=== PATIENT | male | born 1965 | race Two or more races ===

== ENCOUNTER 2018-04-23 07:03 | Emergency (ER) | payer BC ==
[2018-04-23 07:14] VITALS: BP 126/76
--- NOTE | 2018-04-23 07:24 | UC ---
Skin Complaint HPI - HPI Summary HPI Summary: NOTICED A FEW INSECT BITES ON HIS ARMS AND LEGS TODAY AND IS CONCERNED ABOUT SCABIES. WORKS IN A [employer] AND THERE IS A SCABIES OUTBREAK. NO FEVER. - History of Current Complaint Chief Complaint: UCSkin Time Seen by Provider: 04/23/18 07:16 Stated Complaint: SKIN COMPLAINT Hx Obtained From: Patient Onset/Duration: Lasting Days, Still Present Timing: Constant Onset Severity: Mild Current Severity: Mild Pain Intensity: 0 Pain Scale Used: 0-10 Numeric Character: Redness, Raised Aggravating Factor(s): Nothing Alleviating Factor(s): Nothing Associated Signs & Symptoms: Negative: Nausea, Fever, Tenderness Related History: Insect Bite/Sting - Allergy/Home Medications Allergies/Adverse Reactions: Allergies Allergy/AdvReac Type Severity Reaction Status Date / Time codeine Allergy Nausea Verified 04/23/18 07:06 Review of Systems Constitutional: Negative Skin: Rash Respiratory: Negative Cardiovascular: Negative Gastrointestinal: Negative All Other Systems Reviewed And Are Negative: Yes PMH/Surg Hx/FS Hx/Imm Hx Previously Healthy: Yes - Surgical History Surgical History: None - Family History Known Family History: Positive: Hypertension - Social History Alcohol Use: Rare Substance Use Type: None Smoking Status (MU): Never Smoked Tobacco Physical Exam Triage Information Reviewed: Yes Appearance: Well-Appearing, No Pain Distress, Well-Nourished Vital Signs: Initial Vital Signs Temp 97.2 F 04/23/18 07:10 Pulse 77 04/23/18 07:10 Resp 18 04/23/18 07:10 BP 126/76 04/23/18 07:10 Pulse Ox 99 04/23/18 07:10 Vital Signs Reviewed: Yes Eyes: Positive: Conjunctiva Clear ENT: Positive: Hearing grossly normal Neck: Positive: Supple Respiratory: Positive: No respiratory distress, No accessory muscle use Cardiovascular: Positive: Pulses Normal Abdomen Description: Positive: Soft Musculoskeletal: Positive: No Edema Neurological: Positive: Alert Psychological: Positive: Age Appropriate Behavior Skin: Positive: Other - 4 ISOLATED ~5MM RAISED ERYTHEMATOUS LESIONS C/W INSECT BITES. 1 ON LEFT FOREARM, 1 ON RIGHT FOREARM, 1 ON LEFT HAND AND 1 BEHIND LEFT KNEE. NO EXCORIATION Course/Dx - Course Course Of Treatment: APPEARANCE OF INSECT BITES NOT CONSISTENT WITH SCABIES. ADVISED PATIENT TO BE VIGILANT OVER THE NEXT SEVERAL WEEKS AND SEEK REEVALUATION IF HIS RASH CHANGES. KEEP COOL CLEAN AND DRY. TOPICAL HYDROCORTISONE CREAM IF NEEDED FOR MILD ITCHING. - Diagnoses Provider Diagnoses: IINSECT BITES Discharge - Sign-Out/Discharge Documenting (check all that apply): Patient Departure All imaging exams completed and their final reports reviewed: No Studies - Discharge Plan Condition: Stable Disposition: HOME Patient Education Materials: Insect Bite or Sting (ED) Referrals: Helio Talley MD [Primary Care Provider] - If Needed Additional Instructions: YOUR RASH IS NOT CONSISTENT WITH SCABIES. IT CAN TAKE SEVERAL WEEKS AFTER EXPOSURE FOR SCABIES TO MANIFEST SO BE VIGILANT AND SEEK RE-EVALUATION IF YOUR SYMPTOMS CHANGE OR WORSEN. IN THE MEANTIME YOU CAN USE OTC HYDROCORTISONE CREAM IF YOUR BITES ARE ITCHY AT ALL. KEEP COOL, CLEAN AND DRY. - Billing Disposition and Condition Condition: STABLE Disposition: Home
== END 2018-04-23 07:30 | disposition home or self-care (01) ==
LOC: UCEAST 07:03
DX: S40.862A Insect bite (nonvenomous) of left upper arm, initial encounter (principal); S40.861A Insect bite (nonvenomous) of right upper arm, initial encounter; S80.862A Insect bite (nonvenomous), left lower leg, initial encounter; S80.861A Insect bite (nonvenomous), right lower leg, initial encounter; W57.XXXA Bitten or stung by nonvenomous insect and other nonvenomous arthropods, initial encounter; Y92.9 Unspecified place or not applicable
CPT/HCPCS: 99201; G0463